=== PATIENT | male | born 1960 | race Caucasian/White ===

== ENCOUNTER → 2018-11-08 | Outpatient (CLI) | payer BC ==
[~2018-11-08] MED LIST: ALPRAZOLAM0.5 MG PO; AMBIEN5 MG ORAL
--- NOTE | 2018-11-08 17:03 | Diagnostic Imaging Report ---
Indication: Left supra scrotal mass. Concern for inguinal hernia. Technique: Real time grayscale and duplex Doppler imaging of the scrotum performed. Comparison: None Findings: The size, contour, and echogenicitiy of the testis appear normal bilaterally. There is no testicular mass or evidence of torsion. There is good doppler evidence of blood flow within both testes. There are multiple epididymal cysts largest of which is in the left side measuring approximately 3 cm. There are mild bilateral hydroceles present as well. The right testis measures 4.7 x 2.3 x 2.9 cm. The left testis measures 4.8 x 1.9 x 3.1 cm. Real-time scanning of the left inguinal region showed a 2.9 x 1.3 cm heterogeneous structure of mixed echogenicity which corresponds to the area of palpable concern (which was pointed out to us by the patient). The protuberance occurs with the patient standing up and recedes when the patient is supine. During real-time scanning with and without Valsalva, the structure did not change in position and did not move with Valsalva as is typical for inguinal hernias. Nevertheless, the finding is still most likely on the basis of an inguinal hernia. However, for more definitive imaging analysis, suggest CT. IMPRESSION: Probable left inguinal hernia accounting for the focus of protuberance in the left supra scrotal region. Ultrasound real-time imaging evaluation was somewhat atypical as discussed above. Therefore recommend CT for further evaluation. Bilateral hydroceles. Multiple epididymal cysts the largest of which is 3 cm within the left epididymal head. No evidence of testicular mass or torsion.
== END | disposition home or self-care (01) ==
LOC: ULS 15:42
DX: K40.90 Unilateral inguinal hernia, without obstruction or gangrene, not specified as recurrent (principal); N50.9 Disorder of male genital organs, unspecified; N43.3 Hydrocele, unspecified; N50.3 Cyst of epididymis
CPT/HCPCS: 76870